=== PATIENT | female | born 1960 | race African-American/Black ===

== ENCOUNTER 2016-12-23 13:35 | Emergency (ER) | payer OTHER ==
[~2016-12-23] VITALS: Ht 170.2 cm; Wt 102.3 kg
[~2016-12-23 13:35] MED LIST: ACYCLOVIR400 MG PO; ALLOPURINOL100 MG PO; BENTYL20 MG PO; CARAFATE1 GM PO; CIPRO500 MG PO; CITRATE OF MAG296 ML PO; COLACE100 MG PO; COMPAZINE10 MG PO; COREG6.25 M1 PO; COUGH & COLD S237 ML PO; Compazine; DICYCLOMINE HCL10 MG PO; DILAUDID2 MG PO; DILAUDID4 MG PO; FAMOTIDINE20 MG PO; FENTANYL1 EAC4 TD; FLEET ENEMA-AD118 ML PR; FLEXERIL10 MG PO; GABAPENTIN300 MG PO; GABAPENTIN400 MG PO; HARVONI 90-4001 EACH PO; HYDROCHLOROTHIA25 MG PO; IMODIUM A-1 MG/7.5 M PO; K-DUR20 MEQ PO; KEFLEX500 MG PO; KLOR-CON M2020 MEQ PO; LEXAPRO10 MG PO; LIDODERM 5% P1 PATCH TD; LOPRESSOR25 MG PO; LYRICA100 MG PO; LYRICA150 MG PO; METHOCARBAMOL500 MG PO; METOCLOPRAMIDE H5 MG PO; METRONIDAZOLE500 MG PO; MIRALAX17 GM PO; NAPROSYN500 MG PO; NEURONTIN100 MG PO; NEURONTIN600 MG PO; ONDANSETRON ODT4 MG PO; POTASSIUM CHLO20 ME1 PO; PREDNISONE50 MG PO; PROTONIX40 MG PO; ROBAXIN500 MG PO; SENOKOT,SENN1 TABLET PO; SERTRALINE HCL50 MG PO; SUCRALFATE1 GM PO; THERAGEN60 GM TP; TRAZODONE HCL50 MG PO; TYLENOL REGULA325 MG PO; VANCOCIN HCL125 MG PO; ZOFRAN ODT4 MG PO; ZOFRAN ODT8 MG PO; ZOFRAN4 MG PO
[2016-12-23 14:29] LABS: HEMATOCRIT 45.8 % (36.0-46.0); MCH 30.2 PG (29.0-34.0); MCHC 35.4 G/DL (30.0-36.0); MCV 85.4 FL (83-99); MEAN PLAT.VOLUME 10.8 uM^3 (9.5-12.4); PLATELET COUNT 98 K/uL (156-360); RBC DIS.WIDTH-CV 13.4 % (11.8-14.6); RBC DIS.WIDTH-SD 41.4 % (39-53); RED BLOOD COUNT 5.36 M/uL (3.80-5.20); WHITE BLOOD COUNT 7.7 K/uL (4.1-10.2)
[2016-12-23 14:38] LABS: CHLORIDE 105 mEq/L (99-109); POTASSIUM 3.9 mEq/L (3.7-5.4); SODIUM 137 mEq/L (136-147)
[2016-12-23 14:41] LABS: GLUCOSE 96 mg/dL (70-99)
[2016-12-23 14:42] LABS: ANION GAP 10 MEQ/L (2-14)
[2016-12-23 14:43] LABS: TOTAL BILIRUBIN 0.8 mg/dL (0.0-1.0)
[2016-12-23 14:44] LABS: ALKALINE PHOSPHATASE 167 IU/L (3-129); GFR ESTIMATE (CALCULATED) > 59 mL/min/
[2016-12-23 14:45] LABS: UREA NITROGEN (BUN) 8 mg/dL (9-23)
[2016-12-23 15:51] LABS: ADD MIUA? YES; BILIRUBIN NEGATIVE; BLOOD TRACE; COLOR YELLOW ((YELLOW)); GLUCOSE (STRIP) NEGATIVE; KETONES NEGATIVE; LEUKOCYTES NEGATIVE; NITRITE NEGATIVE; PH, URINE 6.5 (5-8); PROTEIN (STRIP) 100; SPECIFIC GRAVITY 1.012 (1.000-1.030)
[2016-12-23 16:07] LABS: BACTERIA NONE SEEN; CASTS NONE SEEN /LPF; CRYSTALS NONE SEEN; EPITHELIAL CELLS RARE; MUCUS NONE SEEN; PATHOLOGICAL CAST NONE SEEN; SMALL ROUND CELL NONE SEEN; UCUL ADDED? NO; WHITE BLOOD CELLS 0-5 /HPF (0-5); YEAST-LIKE CELL NONE SEEN
[2016-12-23] MEDS ORDERED: DILAUDID4 MG PO (19:15)
[2016-12-23 19:52] VITALS: BP 155/101
[2016-12-23 20:21] LABS: C DIFF TOXIN NEGATIVE (NEGATIVE)
[2016-12-23 20:22] LABS: PROBE CHECK PASS; SPECIMEN PROCESSING CONTROL PASS
== END 2016-12-23 19:54 | disposition home or self-care (01) ==
LOC: EME 13:35
PROVIDERS: Physician Assistant
DX: R10.9 Unspecified abdominal pain (principal); G89.29 Other chronic pain; R19.7 Diarrhea, unspecified; I10 Essential (primary) hypertension; K74.60 Unspecified cirrhosis of liver; Z87.891 Personal history of nicotine dependence
CPT/HCPCS: 74000; 80053; 81003; 85027; 87493; 99281; 99285; J1170; J2405; J7040

== ENCOUNTER 2017-02-12 05:54 | Emergency (ER) | payer OTHER ==
[~2017-02-12] VITALS: Ht 170.2 cm; Wt 99.2 kg
[2017-02-12 06:49] LABS: EOSINOPHIL (%) 1.4 % (0-5); EOSINOPHIL COUNT 0.1 K/uL (0-0.3); HEMATOCRIT 43.6 % (36.0-46.0); IMMATURE GRANULOCYTE (%) 0.6 % (0.0-0.7); INSTRUMENT ABS NEUTROPHIL CT 2.9 K/uL; LYMPHOCYTE COUNT 2.7 K/uL (1.0-2.8); MCH 29.9 PG (29.0-34.0); MCHC 33.9 G/DL (30.0-36.0); MCV 88.1 FL (83-99); MEAN PLAT.VOLUME 11.1 uM^3 (9.5-12.4); MONOCYTE (%) 9.9 % (3-12); MONOCYTE COUNT 0.6 K/uL (0-0.8); NEUTROPHIL (%) 45.9 % (45-76); NEUTROPHIL COUNT 2.9 K/uL (1.8-6.4); PLATELET COUNT 99 K/uL (156-360); RBC DIS.WIDTH-CV 12.5 % (11.8-14.6); RBC DIS.WIDTH-SD 39.8 % (39-53); RED BLOOD COUNT 4.95 M/uL (3.80-5.20); WHITE BLOOD COUNT 6.4 K/uL (4.1-10.2)
[2017-02-12 06:57] LABS: CHLORIDE 105 mEq/L (99-109); INTER. NORMALIZED RATIO 1.2; POTASSIUM 3.9 mEq/L (3.7-5.4); PROTHROMBIN TIME 12.2 (9.2-11.2); SODIUM 138 mEq/L (136-147)
[2017-02-12 07:00] LABS: GLUCOSE 110 mg/dL (70-99)
[2017-02-12 07:01] LABS: ANION GAP 9 MEQ/L (2-14)
[2017-02-12 07:02] LABS: TOTAL BILIRUBIN 0.9 mg/dL (0.0-1.0)
[2017-02-12 07:03] LABS: ALKALINE PHOSPHATASE 166 IU/L (3-129); GFR ESTIMATE (CALCULATED) > 59 mL/min/
[2017-02-12 07:04] LABS: UREA NITROGEN (BUN) 7 mg/dL (9-23)
[2017-02-12 07:09] LABS: LIPASE 38 U/L (1.0-51.0)
[2017-02-12] MEDS ORDERED: AMITRIPTYLINE H10 MG PO (09:43)
[2017-02-12 10:27] VITALS: BP 167/106
== END 2017-02-12 10:30 | disposition home or self-care (01) ==
LOC: EME → EDBD 05:54 → EME 10:30
PROVIDERS: Emergency Medicine
DX: R10.9 Unspecified abdominal pain (principal); K74.60 Unspecified cirrhosis of liver; R19.7 Diarrhea, unspecified; I10 Essential (primary) hypertension; G89.29 Other chronic pain; Z79.891 Long term (current) use of opiate analgesic; Z87.891 Personal history of nicotine dependence
CPT/HCPCS: 74022; 80053; 81003; 83690; 85025; 85610; 99281; 99285; J1170; J1885; J2270; J2405; J7030; J7050

== ENCOUNTER 2017-03-08 19:16 | Emergency (ER) | payer OTHER ==
[~2017-03-08] VITALS: Ht 170.2 cm; Wt 102.7 kg
[~2017-03-08 19:16] MED LIST changes: +AMITRIPTYLINE H10 MG PO
[2017-03-08] MEDS ORDERED: MEDROL DOSEPAK4 MG PO (20:21)
[2017-03-08 21:25] VITALS: BP 156/86
[2017-03-09] MEDS ORDERED: PREDNISONE20 MG PO (21:49)
== END 2017-03-08 21:37 | disposition home or self-care (01) ==
LOC: EME 19:16
DX: M79.604 Pain in right leg (principal); M79.605 Pain in left leg; M54.9 Dorsalgia, unspecified; Z85.79 Personal history of other malignant neoplasms of lymphoid, hematopoietic and related tissues
CPT/HCPCS: 99281; 99283; J1170; J7512

== ENCOUNTER 2017-03-09 19:59 | Emergency (ER) | payer OTHER ==
[~2017-03-09] VITALS: Ht 170.2 cm; Wt 100.7 kg
[~2017-03-09 19:59] MED LIST changes: +MEDROL DOSEPAK4 MG PO
[2017-03-09 21:00] LABS: ADD MIUA? NO; BILIRUBIN NEGATIVE; BLOOD NEGATIVE; COLOR YELLOW ((YELLOW)); GLUCOSE (STRIP) NEGATIVE; KETONES NEGATIVE; LEUKOCYTES NEGATIVE; NITRITE NEGATIVE; PROTEIN (STRIP) 30; UCUL ADDED? NO
[2017-03-09 21:25] LABS: HEMATOCRIT 47.3 % (36.0-46.0); MCHC 33.8 G/DL (30.0-36.0); MCV 88.7 FL (83-99); MEAN PLAT.VOLUME 11.7 uM^3 (9.5-12.4); PLATELET COUNT 124 K/uL (156-360); RBC DIS.WIDTH-CV 13.1 % (11.8-14.6); RBC DIS.WIDTH-SD 42.7 % (39-53); RED BLOOD COUNT 5.33 M/uL (3.80-5.20)
[2017-03-09 21:26] LABS: WHITE BLOOD COUNT 9.4 K/uL (4.1-10.2)
[2017-03-09 21:29] LABS: CHLORIDE 102 mEq/L (99-109); POTASSIUM 4.9 mEq/L (3.7-5.4); SODIUM 134 mEq/L (136-147)
[2017-03-09 21:31] LABS: GLUCOSE 198 mg/dL (70-99)
[2017-03-09 21:32] LABS: ANION GAP 10 MEQ/L (2-14)
[2017-03-09 21:33] LABS: TOTAL BILIRUBIN 0.8 mg/dL (0.0-1.0)
[2017-03-09 21:35] LABS: ALKALINE PHOSPHATASE 165 IU/L (3-129); GFR ESTIMATE (CALCULATED) > 59 mL/min/
[2017-03-09 21:36] LABS: UREA NITROGEN (BUN) 13 mg/dL (9-23)
[2017-03-09] MEDS ORDERED: PREDNISONE20 MG PO (21:49)
[2017-03-09 21:57] VITALS: BP 147/93
== END 2017-03-09 21:58 | disposition home or self-care (01) ==
LOC: EME 19:59
PROVIDERS: Physician Assistant
DX: R10.9 Unspecified abdominal pain (principal); T38.0X5A Adverse effect of glucocorticoids and synthetic analogues, initial encounter; I10 Essential (primary) hypertension; K74.60 Unspecified cirrhosis of liver; Z85.72 Personal history of non-Hodgkin lymphomas; Z87.891 Personal history of nicotine dependence
CPT/HCPCS: 74176; 80053; 81003; 85027; 99281; 99283; J1170; J7050

== ENCOUNTER 2017-03-10 20:40 | Emergency (ER) | payer OTHER ==
[~2017-03-10] VITALS: Ht 170.2 cm; Wt 102.7 kg
[~2017-03-10 20:40] MED LIST changes: +PREDNISONE20 MG PO
[2017-03-10 22:21] VITALS: BP 124/84
== END 2017-03-10 22:22 | disposition home or self-care (01) ==
LOC: EME 20:40
DX: M79.604 Pain in right leg (principal); M79.605 Pain in left leg; G89.29 Other chronic pain
CPT/HCPCS: 99281; 99284; J1170

== ENCOUNTER 2017-03-12 18:28 | Emergency (ER) | payer OTHER ==
[~2017-03-12] VITALS: Ht 170.2 cm; Wt 102.7 kg
[2017-03-12] MEDS ORDERED: LYRICA150 MG PO (19:10)
[2017-03-12 19:27] VITALS: BP 131/83
== END 2017-03-12 19:28 | disposition home or self-care (01) ==
LOC: EME 18:28
DX: Z76.0 Encounter for issue of repeat prescription (principal); G89.29 Other chronic pain; M79.604 Pain in right leg; M79.605 Pain in left leg
CPT/HCPCS: 99281; 99283; J1170

== ENCOUNTER 2017-03-13 20:30 | Emergency (ER) | payer OTHER ==
[~2017-03-13] VITALS: Ht 170.2 cm; Wt 102.7 kg
[2017-03-14 00:08] LABS: AMPHETAMINE NEGATIVE (500 ng/mL); BARBITURATES NEGATIVE (200 ng/mL); BENZODIAZEPINES NEGATIVE (150 ng/mL); COCAINE NEGATIVE (150 ng/mL); INTERNAL CONTROLS VALID? YES; METHADONE NEGATIVE (200 ng/mL); METHAMPHETAMINE NEGATIVE (500 ng/mL); OPIATES (MORPHINE) PRESUMPTIVE POSITIVE (100 ng/mL); OXYCODONE NEGATIVE (100 ng/mL); PHENCYCLIDINE NEGATIVE (25 ng/mL); PROPOXYPHENE NEGATIVE (300 ng/mL); THC CANNABINOIDS NEGATIVE (50 ng/mL); TRICYCLIC ANTIDEPRESSANTS NEGATIVE (300 ng/mL)
[2017-03-14 00:10] LABS: ADD MEDTOX COMMENT Y
[2017-03-14 00:13] LABS: SALICYLATE < 5.0 MG/DL (15-30)
[2017-03-14] MEDS ORDERED: ROPINIROLE HCL2 MG PO (01:01)
[2017-03-14] MEDS ORDERED: ZOFRAN8 MG PO (02:42)
[2017-03-14 02:54] VITALS: BP 145/89
[2017-03-14 03:38] LABS: OPIATES QUANTITATIVE VALUE 0 NG/ML
== END 2017-03-14 02:55 | disposition home or self-care (01) ==
LOC: EME 20:30
PROVIDERS: Emergency Medicine; Physician Assistant
DX: M79.605 Pain in left leg (principal); M79.604 Pain in right leg; G89.29 Other chronic pain; G62.9 Polyneuropathy, unspecified; I10 Essential (primary) hypertension; K74.60 Unspecified cirrhosis of liver; C85.90 Non-Hodgkin lymphoma, unspecified, unspecified site
CPT/HCPCS: 84999; 99281; 99284; G0480; J1170

== ENCOUNTER 2017-04-07 23:33 | Emergency (ER) | payer OTHER ==
[~2017-04-07] VITALS: Ht 170.2 cm; Wt 103.0 kg
[~2017-04-07 23:33] MED LIST changes: +ROPINIROLE HCL2 MG PO; +ZOFRAN8 MG PO
[2017-04-08 01:15] LABS: CHLORIDE 102 mEq/L (99-109); POTASSIUM 4.4 mEq/L (3.7-5.4); SODIUM 137 mEq/L (136-147)
[2017-04-08 01:17] LABS: GLUCOSE 98 mg/dL (70-99)
[2017-04-08 01:19] LABS: ANION GAP 13 MEQ/L (2-14); TOTAL BILIRUBIN 0.8 mg/dL (0.0-1.0)
[2017-04-08 01:21] LABS: ALKALINE PHOSPHATASE 153 IU/L (3-129); GFR ESTIMATE (CALCULATED) > 59 mL/min/
[2017-04-08 01:22] LABS: UREA NITROGEN (BUN) 8 mg/dL (9-23)
[2017-04-08 01:25] LABS: LIPASE 25 U/L (1.0-51.0)
[2017-04-08 02:00] LABS: MCH 30.2 PG (29.0-34.0); MCHC 33.9 G/DL (30.0-36.0); MCV 89.1 FL (83-99); MEAN PLAT.VOLUME 11.1 uM^3 (9.5-12.4); PLATELET COUNT 110 K/uL (156-360); RBC DIS.WIDTH-CV 12.3 % (11.8-14.6); RBC DIS.WIDTH-SD 40.2 % (39-53); RED BLOOD COUNT 5.16 M/uL (3.80-5.20); WHITE BLOOD COUNT 6.7 K/uL (4.1-10.2)
[2017-04-08 03:12] LABS: ADD MIUA? YES; BILIRUBIN NEGATIVE; BLOOD SMALL; COLOR STRAW ((YELLOW)); GLUCOSE (STRIP) NEGATIVE; KETONES NEGATIVE; LEUKOCYTES NEGATIVE; NITRITE NEGATIVE; PROTEIN (STRIP) NEGATIVE; UROBILINOGEN 0.2 MG/DL (0.2-1.0)
[2017-04-08 03:15] LABS: BACTERIA NONE SEEN /HPF; EPITHELIAL CELLS RARE /HPF; MUCUS TRACE /LPF; RED BLOOD CELLS 0-5 /HPF (0-5); UCUL ADDED? NO; WHITE BLOOD CELLS 0-5 /HPF (0-5)
[2017-04-08 03:41] VITALS: BP 158/97
== END 2017-04-08 03:42 | disposition home or self-care (01) ==
LOC: EME 23:33
PROVIDERS: Emergency Medicine
DX: R10.9 Unspecified abdominal pain (principal); G89.29 Other chronic pain; I10 Essential (primary) hypertension; F32.9 Major depressive disorder, single episode, unspecified
CPT/HCPCS: 74177; 80053; 81003; 83605; 83690; 85027; 93005; 99281; 99284; J1170; J7030

== ENCOUNTER 2017-05-09 23:15 | Emergency (ER) | payer OTHER ==
[~2017-05-09] VITALS: Ht 170.2 cm; Wt 102.7 kg
[2017-05-10 00:11] LABS: HEMATOCRIT 46.3 % (36.0-46.0); MCH 29.9 PG (29.0-34.0); MCHC 34.3 G/DL (30.0-36.0); MCV 87.2 FL (83-99); MEAN PLAT.VOLUME 11.1 uM^3 (9.5-12.4); PLATELET COUNT 98 K/uL (156-360); RBC DIS.WIDTH-CV 12.5 % (11.8-14.6); RBC DIS.WIDTH-SD 40.1 % (39-53); RED BLOOD COUNT 5.31 M/uL (3.80-5.20); WHITE BLOOD COUNT 6.3 K/uL (4.1-10.2)
[2017-05-10 00:29] LABS: CHLORIDE 105 mEq/L (99-109); POTASSIUM 3.8 mEq/L (3.7-5.4); SODIUM 135 mEq/L (136-147)
[2017-05-10 00:31] LABS: GLUCOSE 117 mg/dL (70-99)
[2017-05-10 00:32] LABS: ANION GAP 10 MEQ/L (2-14)
[2017-05-10 00:33] LABS: TOTAL BILIRUBIN 0.5 mg/dL (0.0-1.0)
[2017-05-10 00:35] LABS: ALKALINE PHOSPHATASE 130 IU/L (3-129); GFR ESTIMATE (CALCULATED) > 59 mL/min/
[2017-05-10 00:36] LABS: UREA NITROGEN (BUN) 12 mg/dL (9-23)
[2017-05-10 00:38] LABS: LIPASE 42 U/L (1.0-51.0)
[2017-05-10 06:34] VITALS: BP 129/103
== END 2017-05-10 06:36 | disposition home or self-care (01) ==
LOC: EME 23:15
DX: R10.33 Periumbilical pain (principal); K74.60 Unspecified cirrhosis of liver; Z85.72 Personal history of non-Hodgkin lymphomas; I10 Essential (primary) hypertension
CPT/HCPCS: 74000; 80053; 81003; 83605; 83690; 85027; 99281; 99285; J1170; J2405; J7050

== ENCOUNTER 2017-06-11 07:17 | Emergency (ER) | payer OTHER ==
[~2017-06-11] VITALS: Ht 170.2 cm; Wt 103.6 kg
[2017-06-11] MEDS ORDERED: HYDROMORPHONE HC4 MG PO (08:00)
[2017-06-11] MEDS ORDERED: ELAVIL10 MG PO (08:01)
[2017-06-11] MEDS ORDERED: HYDROCHLOROTHIA25 MG PO (08:02)
[2017-06-11] MEDS ORDERED: POTASSIUM CHLO10 MEQ PO (08:02)
[2017-06-11] MEDS ORDERED: LYRICA100 MG PO (08:03)
[2017-06-11 11:36] VITALS: BP 152/100
== END 2017-06-11 11:39 | disposition home or self-care (01) ==
LOC: EME 07:17
DX: G57.93 Unspecified mononeuropathy of bilateral lower limbs (principal); I10 Essential (primary) hypertension; Z85.72 Personal history of non-Hodgkin lymphomas
CPT/HCPCS: 72100; 99281; 99285; J1100; J1885; J7050

== ENCOUNTER 2018-02-19 19:44 | Emergency (ER) | payer OTHER ==
[~2018-02-19] VITALS: Ht 170.2 cm; Wt 104.2 kg
[~2018-02-19 19:44] MED LIST changes: +ELAVIL10 MG PO; +HYDROMORPHONE HC4 MG PO; +POTASSIUM CHLO10 MEQ PO
[2018-02-19 20:19] LABS: HEMATOCRIT 42.6 % (36.0-46.0); HEMOGLOBIN 14.9 G/DL (11.9-15.5); MCV 88.8 FL (83-99); PLATELET COUNT 107 K/uL (156-360); RBC DIS.WIDTH-CV 13.1 % (11.8-14.6); RBC DIS.WIDTH-SD 42.7 % (39-53); WHITE BLOOD COUNT 8.2 K/uL (4.1-10.2)
[2018-02-19 20:27] LABS: ALBUMIN 4.2 g/dL (3.2-4.8); CHLORIDE 110 mEq/L (99-109); POTASSIUM 3.7 mEq/L (3.7-5.4); SODIUM 143 mEq/L (136-147)
[2018-02-19 20:29] LABS: GLUCOSE 118 mg/dL (70-99)
[2018-02-19 20:30] LABS: TOTAL PROTEIN 8.4 g/dL (6.4-8.3)
[2018-02-19 20:31] LABS: TOTAL BILIRUBIN 0.6 mg/dL (0.0-1.0)
[2018-02-19 20:33] LABS: ALKALINE PHOSPHATASE 127 IU/L (3-129); CREATININE 0.8 mg/dL (0.6-1.3); GFR ESTIMATE (CALCULATED) > 59 mL/min/
[2018-02-19 20:34] LABS: UREA NITROGEN (BUN) 8 mg/dL (9-23)
[2018-02-19 20:35] LABS: AST (GOT) 37 IU/L (2-34)
[2018-02-19 20:36] LABS: ALT (GPT) 21 IU/L (3-49); LIPASE 34 U/L (1.0-51.0)
[2018-02-19 23:25] LABS: APPEARANCE CLEAR ((CLEAR)); BILIRUBIN NEGATIVE; BLOOD NEGATIVE; COLOR YELLOW ((YELLOW)); GLUCOSE (STRIP) NEGATIVE; KETONES NEGATIVE; LEUKOCYTES NEGATIVE; NITRITE NEGATIVE; PROTEIN (STRIP) 30; SPECIFIC GRAVITY 1.016 (1.000-1.030); UCUL ADDED? NO; UROBILINOGEN 0.2 MG/DL (0.2-1.0)
[2018-02-20] MEDS ORDERED: OMEPRAZOLE40 M1 PO (01:00)
[2018-02-20] MEDS ORDERED: BENTYL10 MG PO (01:00)
[2018-02-20 01:24] VITALS: BP 153/76
== END 2018-02-20 01:26 | disposition home or self-care (01) ==
LOC: EME 19:44
DX: R10.9 Unspecified abdominal pain (principal); K74.60 Unspecified cirrhosis of liver; I10 Essential (primary) hypertension; F41.9 Anxiety disorder, unspecified; F32.9 Major depressive disorder, single episode, unspecified; Z85.72 Personal history of non-Hodgkin lymphomas; Z92.21 Personal history of antineoplastic chemotherapy; Z92.3 Personal history of irradiation; Z88.5 Allergy status to narcotic agent
CPT/HCPCS: 74177; 80053; 81003; 83690; 85027; 99281; 99285; J1885; J2765; J7030